=== PATIENT | male | born 1935 | race Caucasian/White ===

== ENCOUNTER 2022-12-21 12:49 | Outpatient (RCR) | payer MEDICARE, OTHER, SELFPAY | END 2023-02-02 09:31 | disposition home or self-care (01) | LOC: HO.WCC 12:49 | PROVIDERS: PCP Internal Medicine; Referring Provider Internal Medicine; Visit Provider Surgery | DX: Z09 Encounter for follow-up examination after completed treatment for conditions other than malignant neoplasm (principal); I87.323 Chronic venous hypertension (idiopathic) with inflammation of bilateral lower extremity; Q82.0 Hereditary lymphedema; E11.9 Type 2 diabetes mellitus without complications; Z79.4 Long term (current) use of insulin; Z79.01 Long term (current) use of anticoagulants; Z87.2 Personal history of diseases of the skin and subcutaneous tissue; Z79.899 Other long term (current) drug therapy | CPT/HCPCS: 11042; 29581; 97597; 99212; 99213 ==

== ENCOUNTER 2023-08-16 10:47 | Outpatient (REF) | payer MEDICARE, OTHER, SELFPAY ==
[2023-08-16 10:51] LABS: MANUAL DIFF FLAG NO
[2023-08-16 11:13] LABS: Basophils Percent Auto 0.6 % (0-2); Eosinophils Absolute Auto 0.3 X10*3/uL (0.0-0.4); Eosinophils Percent Auto 4.3 % (0-4); Hematocrit 33.2 % (42.0-52.0); Hemoglobin 10.4 g/dl (14.0-18.0); Imm Gran Abs Auto 0.02 X10*3/uL (0.00-0.03); Imm Gran Pct Auto 0.3 % (0.0-0.4); Lymphocytes Absolute Auto 1.3 X10*3/uL (1.2-4.9); Lymphocytes Percent Auto 19.5 % (20-40); Mean Corpuscular HGB Conc 31.3 g/dl (31.0-36.0); Mean Corpuscular Volume 92.5 fL (80.0-98.0); Monocytes Absolute Auto 0.7 X10*3/uL (0.1-1.2); Monocytes Percent Auto 9.7 % (2-11); Neutrophils Absolute Auto 4.5 x10*3/uL (2.0-8.3); Neutrophils Percent Auto 65.6 % (45-73); Platelet Count 632 X10*3/uL (160-400); Red Blood Count 3.59 X10*6/uL (4.60-5.80); Red Cell Distribution Width 19.2 % (11.0-16.0); White Blood Count 6.8 X10*3/uL (4.8-10.8)
[2023-08-16 11:25] LABS: Estimated Average Glucose 103 mg/dL; Hemoglobin A1c % 5.2 % (<6.0)
[2023-08-16 11:45] LABS: Alanine Aminotransferase 9 U/L (0-40); Albumin Level 3.1 g/dL (3.5-5.0); Alkaline Phosphatase 22 U/L (39-117); Anion Gap 11 (12-20); Aspartate Amino Transferase 28 U/L (5-37); Bilirubin Total 0.6 mg/dL (0.0-1.0); Blood Urea Nitrogen 45 mg/dL (9-16); Calcium 8.7 mg/dL (8.4-10.2); Carbon Dioxide 27 mmol/L (22-29); Chloride 109 mmol/L (96-108); Estimated Glomerular Filt Rate 52; Glucose Fasting 131 mg/dL (60-99); Potassium 4.5 mmol/L (3.3-5.1); Sodium 142 mmol/L (135-145)
[2023-08-16 12:02] LABS: Thyroid Stimulating Hormone 3.29 uIU/mL (0.32-4.0)
[2023-08-18 23:28] LABS: TS Negative Control Passed; TS Panel A 0; TS Panel B 0; TS Positive Control Passed; TSpotTB Negative (Negative)
== END 2023-08-16 10:48 | disposition home or self-care (01) ==
LOC: HO.HSH3W 10:47
PROVIDERS: Visit Provider Internal Medicine Interventional Cardiology
DX: E11.9 Type 2 diabetes mellitus without complications (principal); I25.10 Atherosclerotic heart disease of native coronary artery without angina pectoris; I50.9 Heart failure, unspecified; E78.5 Hyperlipidemia, unspecified
CPT/HCPCS: 36415; 80053; 82043; 82570; 83036; 84443; 85025; 86481

== ENCOUNTER 2023-08-17 05:05 | Outpatient (REF) | payer MEDICARE, OTHER, SELFPAY ==
[2023-08-17 06:32] LABS: Cholesterol 107 mg/dL (<200); HDL Cholesterol 21 mg/dL (>40); LDL Cholesterol Calculated 65 mg/dL (<100); Triglycerides 106 mg/dL (<150)
== END 2023-08-17 05:06 | disposition home or self-care (01) ==
LOC: HO.HSH3W 05:05
PROVIDERS: Visit Provider Internal Medicine Interventional Cardiology
DX: E78.5 Hyperlipidemia, unspecified (principal); I25.10 Atherosclerotic heart disease of native coronary artery without angina pectoris
CPT/HCPCS: 36415; 80061; 82550

== ENCOUNTER 2023-08-20 05:13 | Outpatient (REF) | payer MEDICARE, OTHER, SELFPAY ==
[2023-08-20 06:47] LABS: Vitamin D 25-OH Total 13.2 ng/mL (>30)
== END 2023-08-20 05:14 | disposition home or self-care (01) ==
LOC: HO.HSH3W 05:13
PROVIDERS: Visit Provider Nurse Practitioner Acute Care
DX: M19.90 Unspecified osteoarthritis, unspecified site (principal)
CPT/HCPCS: 36415; 82306

== ENCOUNTER 2023-09-14 06:17 | Outpatient (REF) | payer MEDICARE, OTHER, SELFPAY ==
[2023-09-14 06:55] LABS: Alanine Aminotransferase 7 U/L (0-40); Albumin Level 2.7 g/dL (3.5-5.0); Alkaline Phosphatase 19 U/L (39-117); Anion Gap 11 (12-20); Aspartate Amino Transferase 19 U/L (5-37); Bilirubin Total 0.3 mg/dL (0.0-1.0); Blood Urea Nitrogen 49 mg/dL (9-16); Calcium 8.4 mg/dL (8.4-10.2); Carbon Dioxide 28 mmol/L (22-29); Chloride 108 mmol/L (96-108); Estimated Glomerular Filt Rate > 60; Glucose Random 122 mg/dL (60-115); Potassium 4.4 mmol/L (3.3-5.1); Sodium 143 mmol/L (135-145); Total Protein 5.5 g/dL (6.5-8.0)
== END 2023-09-14 06:18 | disposition home or self-care (01) ==
LOC: HO.HSH3W 06:17
PROVIDERS: Visit Provider Nurse Practitioner Acute Care
DX: I50.9 Heart failure, unspecified (principal)
CPT/HCPCS: 36415; 80053

== ENCOUNTER 2023-10-11 07:08 | Outpatient (REF) | payer MEDICARE, OTHER, SELFPAY ==
[2023-10-11 07:54] LABS: Anion Gap 13 (12-20); Blood Urea Nitrogen 58 mg/dL (9-16); Calcium 8.9 mg/dL (8.4-10.2); Carbon Dioxide 29 mmol/L (22-29); Chloride 107 mmol/L (96-108); Estimated Glomerular Filt Rate > 60; Glucose Random 84 mg/dL (60-115); Potassium 3.8 mmol/L (3.3-5.1); Sodium 145 mmol/L (135-145)
== END 2023-10-11 07:09 | disposition home or self-care (01) ==
LOC: HO.HSH3W 07:08
PROVIDERS: Visit Provider Nurse Practitioner
DX: I12.9 Hypertensive chronic kidney disease with stage 1 through stage 4 chronic kidney disease, or unspecified chronic kidney disease (principal); N18.9 Chronic kidney disease, unspecified
CPT/HCPCS: 36415; 80048

== ENCOUNTER 2023-11-01 06:49 | Outpatient (REF) | payer MEDICARE, OTHER, SELFPAY ==
[2023-11-01 06:56] LABS: MANUAL DIFF FLAG NO
[2023-11-01 07:06] LABS: Basophils Percent Auto 0.5 % (0-2); Eosinophils Percent Auto 12.4 % (0-4); Hemoglobin 11.2 g/dl (14.0-18.0); Imm Gran Abs Auto 0.04 X10*3/uL (0.00-0.03); Imm Gran Pct Auto 0.5 % (0.0-0.4); Lymphocytes Absolute Auto 1.8 X10*3/uL (1.2-4.9); Lymphocytes Percent Auto 21.8 % (20-40); Mean Corpuscular Hemoglobin 28.9 pg (27.0-33.0); Mean Corpuscular Volume 90.2 fL (80.0-98.0); Mean Platelet Volume 10.9 fL (9.4-12.4); Monocytes Absolute Auto 0.9 X10*3/uL (0.1-1.2); Monocytes Percent Auto 11.2 % (2-11); Neutrophils Absolute Auto 4.3 x10*3/uL (2.0-8.3); Neutrophils Percent Auto 53.6 % (45-73); Platelet Count 581 X10*3/uL (160-400); Red Blood Count 3.88 X10*6/uL (4.60-5.80); Red Cell Distribution Width 16.1 % (11.0-16.0)
[2023-11-01 07:13] LABS: Anion Gap 12 (12-20); Blood Urea Nitrogen 68 mg/dL (9-16); Calcium 8.7 mg/dL (8.4-10.2); Carbon Dioxide 30 mmol/L (22-29); Chloride 107 mmol/L (96-108); Estimated Glomerular Filt Rate > 60; Glucose Random 111 mg/dL (60-115); Potassium 4.1 mmol/L (3.3-5.1); Sodium 145 mmol/L (135-145)
== END 2023-11-01 06:50 | disposition home or self-care (01) ==
LOC: HO.HSH3W 06:49
PROVIDERS: Visit Provider Nurse Practitioner Acute Care
DX: E11.40 Type 2 diabetes mellitus with diabetic neuropathy, unspecified (principal)
CPT/HCPCS: 36415; 80048; 85025

== ENCOUNTER 2023-11-25 19:30 | Outpatient (REF) | payer MEDICARE, OTHER, SELFPAY | END 2023-11-25 19:31 | disposition home or self-care (01) | LOC: HO.HSH3N 19:30 | PROVIDERS: Visit Provider Internal Medicine Interventional Cardiology | DX: Z13.89 Encounter for screening for other disorder (principal) ==

== ENCOUNTER 2023-11-26 04:29 | Outpatient (REF) | payer MEDICARE, OTHER, SELFPAY ==
[2023-11-26 11:10] LABS: Adenovirus F 40/41 Not Detected (Not Detect.); Astrovirus Not Detected (Not Detect.); Campylobacter Not Detected (Not Detect.); Cryptosporidium Not Detected (Not Detect.); Cyclospora cayetanensis Not Detected (Not Detect.); E. coli EAEC Not Detected (Not Detect.); E. coli EPEC Not Detected (Not Detect.); E. coli ETEC Not Detected (Not Detect.); E. coli STEC Not Detected (Not Detect.); Entamoeba histolytica Not Detected (Not Detect.); Giardia lamblia Not Detected (Not Detect.); Norovirus GI/GII Not Detected (Not Detect.); Plesiomonas shigelloides Not Detected (Not Detect.); Rotavirus A Not Detected (Not Detect.); Salmonella Not Detected (Not Detect.); Sapovirus Not Detected (Not Detect.); Shigella sp./EIEC Not Detected (Not Detect.); Vibrio Not Detected (Not Detect.); Vibrio Cholerae Not Detected (Not Detect.); Yersinia enterocolitica Not Detected (Not Detect.)
== END 2023-11-26 04:30 | disposition home or self-care (01) ==
LOC: HO.LNP 04:29
PROVIDERS: PCP Internal Medicine Interventional Cardiology; Visit Provider Internal Medicine Interventional Cardiology
DX: R19.7 Diarrhea, unspecified (principal)
CPT/HCPCS: 87507